=== PATIENT | female | born 1945 | race Caucasian/White ===

== ENCOUNTER 2017-03-08 18:20 | Emergency (ER) | payer MEDICARE | END 2017-03-08 19:30 | disposition home or self-care (01) | LOC: ER 18:20 | DX: R42 Dizziness and giddiness (principal); R11.0 Nausea; R53.1 Weakness; K21.9 Gastro-esophageal reflux disease without esophagitis; Z79.899 Other long term (current) drug therapy; Z79.891 Long term (current) use of opiate analgesic; Z88.2 Allergy status to sulfonamides; Z88.1 Allergy status to other antibiotic agents; Z88.8 Allergy status to other drugs, medicaments and biological substances | CPT/HCPCS: 82962; 99283-25; 99284; J8597 ==